=== PATIENT | female | born 1955 | race Caucasian/White ===

== ENCOUNTER 2021-08-25 12:06 | Inpatient (IN) | payer MEDICARE, OTHER ==
[2021-08-25] MEDS ORDERED: Lidocaine/Prilocaine 2.5-2.5% Crm 5 GM Tube TOP ONE (12:42)
[2021-08-25] MEDS ORDERED: Albuterol HFA 18 Gm Inhaler INH PRN (12:46)
[2021-08-25] MEDS ORDERED: Azithromycin 500 MG in Sodium Chloride 0.9% 250 ML IV SCH (13:00)
[2021-08-25] MEDS ORDERED: Non-Formulary Medication 1 Each (Denosumab [Prolia] 60 MG/ML Syringe) SQ SCH (13:00)
[2021-08-25] MEDS ORDERED: cefTRIAXone 1 GM Vial IVPUSH SCH (13:15)
[2021-08-25 13:28] LABS: ANION GAP 21.1 mmol/L (5-15); CHLORIDE,CL 100 mmol/L (98-107); SODIUM,NA 131 mmol/L (136-145)
[2021-08-25] MEDS: Sodium Chloride 0.9% 1,000 ML IV SCH (13:48)
[2021-08-25] MEDS: Gabapentin 300 MG Cap PO SCH ×2 (14:30→20:29)
[2021-08-25] MEDS ORDERED: Levofloxacin/Dextrose 5%-Water 100 ML IV ONE (14:30)
[2021-08-25] MEDS: Enoxaparin 30 MG/0.3 ML Syringe SUBCUT SCH (14:33)
--- NOTE | 2021-08-25 17:55 | HP ---
Admission history and physical to the acute care floor at [facility]. CHIEF COMPLAINT: Weakness. HISTORY OF PRESENT ILLNESS: A 65-year-old female patient presented to the [facility] earlier today for profound weakness, fatigue, and generally not feeling well. The patient's blood pressure in the clinic was in the 80s. The patient was found to be very weak. The patient states that her symptoms started a couple of weeks ago and have progressively gotten worse. She states she feels "lousy." The patient has had a productive cough. She feels short of breath. The patient endorses weakness and fatigue. She does not have any chest pain or palpitations. She has had an intermittent headache. No dizziness or lightheadedness. The patient feels she lacks energy. The patient has had chills but denies any fever. No cold symptoms. The patient did have an x-ray in the clinic, which showed right lower lobe pneumonia. Therefore, the patient was admitted to the acute care floor at [facility]. The patient also is positive for COVID-19. PAST MEDICAL HISTORY: 1. Rheumatoid arthritis. 2. Vitamin D deficiency. 3. Osteoarthritis. 4. Neuropathic pain. 5. GERD. 6. Folic acid deficiency. 7. Essential tremor. 8. Memory loss. 9. Anemia of chronic renal failure stage 3B. 10.Monocytosis. 11.Macrocytic anemia. 12.Non-celiac gluten sensitivity. 13.Hypogammaglobulinemia. 14.Central hearing loss. 15.Obstructive sleep apnea. 16.Port-A-Cath in place. 17.Essential hypertension. PAST SURGICAL HISTORY: 1. Temporomandibular joint surgery. 2. section. 3. Right total hip arthroplasty. 4. Right hand debridement. 5. Appendectomy. 6. Cervical spine surgery. 7. Lumbar spine surgery. 8. Gastrectomy secondary to perforated gastric mucosa. 9. Cataract removal, bilateral. 10.Tonsillectomy with adenoidectomy. FAMILY HISTORY: Noncontributory. SOCIAL HISTORY: The patient drinks alcohol occasionally. No illegal drug use. The patient has never been a smoker. No vaping. The patient is currently . The patient has 1 child. ALLERGIES: 1. Diagnostic x-ray. 2. Erythromycin. 3. Kineret. 4. Penicillin. 5. Sulfa. 6. Cefaclor. 7. Clindamycin. 8. Morphine. 9. Piroxicam. 10.Tetracyclines. 11.Anakinra. MEDICATIONS: 1. Prolia 60 mg subcutaneous every 6 months. 2. Albuterol HFA 1 to 2 puffs every 4 hours as needed. 3. Famotidine 20 mg 1 tablet p.o. twice daily. 4. Folic acid 1 mg twice daily. 5. Lamisil 250 mg 1 tablet p.o. daily. 6. Arava 20 mg 1/2 tablet daily. 7. Tylenol Arthritis 2 tablets every 6 hours as needed. 8. Loprox 0.77% gel apply 1 time a day. 9. Prilosec 40 mg 1 capsule once daily. 10.Cozaar 25 mg 1 tablet p.o. daily. 11.Magnesium oxide 400 mg 1 tablet p.o. twice daily. 12.Prednisone 5 mg 1 tablet p.o. daily. 13.Neurontin 300 mg capsule 2 capsules in the a.m., 2 capsules in the afternoon, and 7 capsules at bedtime. REVIEW OF SYSTEMS: See HPI. PHYSICAL EXAMINATION: Vital Signs: Height 5 feet 1 inch, weight 113 pounds. Blood pressure 64/45, pulse 76, respirations 16, temperature 98.1, and oxygen saturation 98% on room air. Skin: Intact, warm, and dry. Respiratory: Bibasilar crackles with scattered rhonchi on the right. Otherwise, decreased. Cardiovascular: Regular rate and rhythm, no murmur. Abdomen: Soft, nontender. Bowel sounds are hypoactive x4. Extremities: No edema. Neurological: The patient is alert. The patient is oriented to person, place, and time. LABORATORY STUDIES: 1. CBC: White blood cell count 5.4, hemoglobin 11.7, hematocrit 35.8, and platelets 257,000. 2. CMP: Sodium 131, potassium 4.1, chloride 100, CO2 of 14, anion gap 21.1, BUN 36, creatinine 1.8, GFR 28, glucose 144, calcium 8.2, phosphorus 4.4, magnesium 2.0, AST 27, ALT 14, and alkaline phosphatase 45. 3. LDH 283. 4. C-reactive protein 4.8. 5. Lactic acid 1.2. 6. Ferritin 698. ASSESSMENT: 1. Right lower lobe pneumonia, unknown organism. 2. COVID-19. 3. Hypotension. 4. Rheumatoid arthritis. 5. Anemia of chronic renal failure stage 3B. 6. Hypogammaglobulinemia. 7. Essential tremor. 8. Essential hypertension. 9. Gastroesophageal reflux disease. 10.Obstructive sleep apnea. PLAN: A 65-year-old female patient admitted to the acute care floor at [facility] with above diagnoses. The patient will be started on IV Levaquin per Pharmacy. We will start her on vitamin D, vitamin C, and zinc. The patient is not requiring oxygen, therefore, we will not start the remdesivir or Decadron. The patient wishes to be a code 2; however, she has agreed to a code 1 per her daughter's persistence. She does wish to transfer to a higher level of care should the need arise. We will recheck laboratory work tomorrow morning. The patient is stable at this point. We will resuscitate hypotension with IV fluid. This patient was seen and examined by me as an provider. TB: 08/25/2021 16:36:51 MODL: 08/25/2021 17:48:50 /[id number]
[2021-08-25] MEDS: Cholecalciferol (Vitamin D3) 25 MCG Tab PO SCH (20:29)
[2021-08-25] MEDS: Ascorbic Acid 500 MG Tab PO SCH (20:29)
[2021-08-25] MEDS: Zinc Sulfate 220 MG Cap PO SCH (20:29)
[2021-08-25] MEDS: Folic Acid 1 MG Tab PO SCH ×2 (20:29→20:31)
[2021-08-25] MEDS: Famotidine 20 MG Tab PO SCH (20:29)
[2021-08-25] MEDS: Acetaminophen 650 MG Tab.ER PO PRN (20:53)
[2021-08-26] MEDS: Sodium Chloride 0.9% 1,000 ML IV SCH ×2 (01:03→14:14)
[2021-08-26] MEDS: Acetaminophen 650 MG Tab.ER PO PRN ×3 (04:15→22:16)
[2021-08-26] MEDS: Omeprazole 20 MG Cap.CR PO SCH (06:23)
[2021-08-26 07:12] LABS: ANION GAP 18.6 mmol/L (5-15)
[2021-08-26] MEDS: Folic Acid 1 MG Tab PO SCH ×2 (07:29→20:10)
[2021-08-26] MEDS: TERBINAFINE 250 MG PO SCH (07:29)
[2021-08-26] MEDS: CICLOPIROX TOP SCH (07:29)
[2021-08-26] MEDS: Leflunomide 20 MG Tab PO SCH ×2 (07:30→07:51)
[2021-08-26] MEDS: Famotidine 20 MG Tab PO SCH ×2 (07:38→20:11)
[2021-08-26] MEDS: Ascorbic Acid 500 MG Tab PO SCH ×2 (07:38→20:10)
[2021-08-26] MEDS: Gabapentin 300 MG Cap PO SCH ×3 (07:38→20:10)
[2021-08-26] MEDS: Cholecalciferol (Vitamin D3) 25 MCG Tab PO SCH (07:38)
[2021-08-26] MEDS: Zinc Sulfate 220 MG Cap PO SCH (07:38)
[2021-08-26] MEDS: Magnesium Oxide 400 MG Tab PO SCH (07:51)
[2021-08-26] MEDS: Losartan 25 MG Tab PO SCH (07:52)
[2021-08-26] MEDS: Levofloxacin 250 MG Tab PO SCH (10:31)
[2021-08-26] MEDS: Enoxaparin 30 MG/0.3 ML Syringe SUBCUT SCH (14:02)
[2021-08-26] MEDS: predniSONE 5 MG Tab PO SCH (17:55)
--- NOTE | 2021-08-26 20:46 | PN ---
Progress Note for CHRIS SALCEDO Date: 08/26/2021 Room #: [facility] CHIEF COMPLAINT: Weakness. HISTORY OF PRESENT ILLNESS: Hospital day #2 for a 65-year-old female patient, who presented to the [facility] yesterday with profound weakness, fatigue, and generally not feeling well. In the clinic, the patient had blood pressures in the 80s. She did test positive for COVID-19. The patient states that she really just was feeling "lousy." The patient has a productive cough. Decision was made to admit the patient to the acute care floor for right lower lobe pneumonia. The patient is very adamant today that she wants to sign herself out AMA. Long discussion was held with the patient in regard to her current health status, the possibility of , worsening symptoms, without proper treatment. The patient continued to be adamant about going home AMA. The patient did spike a fever today to 104 and became very weak. She then decided to stay and not go home AMA today. REVIEW OF SYSTEMS: Skin: Negative. Neurological: Negative. Respiratory: Productive cough, intermittent shortness of breath. Cardiovascular: Negative. Abdomen: Negative. Extremities: Complains of joint pain, which is chronic from her rheumatoid arthritis. Constitutional: Negative. PHYSICAL EXAMINATION: Vital Signs: Temperature 98.9, pulse 82, blood pressure 102/72, respirations 16, O2 saturation 97% on room air. General: The patient is cooperative. The patient does not appear to be in any acute distress. The patient is alert. Respiratory: Coarse rhonchi with crackles, right mid lung to base. Base crackles, left lung. Cardiovascular: Regular rate and rhythm. No murmur. Abdomen: Soft, nontender. Bowel sounds are hypoactive x4. Extremities: No edema. Neurological: The patient is alert. The patient is oriented to person, place, and time. LABORATORY STUDIES: 1. CBC: White blood cell count 4.4, hemoglobin 9.3, hematocrit 28.4, platelet count 237. 2. CMP: Sodium 136, potassium 3.6, chloride 104, CO2 of 17, anion gap 18.6, BUN 29, creatinine 1.5, GFR 35, glucose 83, calcium 6.9, corrected calcium 8.3, AST 24, ALT 12, alkaline phosphatase 33, total protein 5.5. ASSESSMENT: 1. Right lower lobe pneumonia, etiology possibly bacterial. 2. COVID-19. 3. Hypotension. 4. Rheumatoid arthritis. 5. Anemia of chronic renal failure, stage 3B. 6. Hypogammaglobulinemia. 7. Essential tremor. 8. Essential hypertension. 9. Gastroesophageal reflux disease. 10.Obstructive sleep apnea. PLAN: Hospital day #2 for a 65-year-old female patient, who was admitted to [facility] acute care for right lower lobe pneumonia. The patient also has concurrent COVID-19. It is believed the pneumonia is bacterial given the chest x-ray and not related to COVID-19. The patient does not meet criteria for remdesivir or Decadron. Nursing staff called this afternoon, the patient spiked a fever to 104. UA was obtained. Blood cultures have already also been obtained. The patient will continue on her current IV antibiotics. The patient wishes to be a code 2; however, she has agreed to code 1 per her daughter's presence. We will ask Psychiatric Nursing Assistant to clarify code status. Recheck laboratory work tomorrow. Continue with IV fluid hydration. This patient was seen and examined by me as an [facility] provider. TB: 08/26/2021 17:27:19 MODL: 08/26/2021 20:38:10 /[id number]
[2021-08-27] MEDS: Sodium Chloride 0.9% 1,000 ML IV SCH ×3 (00:36→20:29)
[2021-08-27] MEDS: Omeprazole 20 MG Cap.CR PO SCH (06:25)
[2021-08-27] MEDS: Gabapentin 300 MG Cap PO SCH ×3 (09:48→19:55)
[2021-08-27] MEDS: Zinc Sulfate 220 MG Cap PO SCH (09:48)
[2021-08-27] MEDS: Losartan 25 MG Tab PO SCH (09:48)
[2021-08-27] MEDS: Leflunomide 20 MG Tab PO SCH (09:49)
[2021-08-27] MEDS: Cholecalciferol (Vitamin D3) 25 MCG Tab PO SCH (09:51)
[2021-08-27] MEDS: Acetaminophen 650 MG Tab.ER PO PRN ×3 (09:51→22:03)
[2021-08-27] MEDS: Folic Acid 1 MG Tab PO SCH ×2 (09:51→19:56)
[2021-08-27] MEDS: Famotidine 20 MG Tab PO SCH ×2 (09:52→19:56)
[2021-08-27] MEDS: Magnesium Oxide 400 MG Tab PO SCH (09:52)
[2021-08-27] MEDS: predniSONE 5 MG Tab PO SCH (09:52)
[2021-08-27] MEDS: Ascorbic Acid 500 MG Tab PO SCH ×2 (09:52→19:56)
[2021-08-27] MEDS: CICLOPIROX TOP SCH (09:54)
[2021-08-27] MEDS: TERBINAFINE 250 MG PO SCH (09:54)
[2021-08-27] MEDS: Levofloxacin 250 MG Tab PO SCH (11:41)
[2021-08-27] MEDS: Enoxaparin 30 MG/0.3 ML Syringe SUBCUT SCH (11:43)
--- NOTE | 2021-08-27 14:15 | PN ---
Progress Note for CHRIS SALCEDO Date: 08/27/2021 Room #: [facility]209 CHIEF COMPLAINT: Weakness. HISTORY OF PRESENT ILLNESS: Hospital day #3 for a 65-year-old female patient who is admitted for right lower lobe pneumonia. The patient was also found to test positive for COVID-19. The patient states that she feels very weak and tired today. She denies any headaches, dizziness, or lightheadedness. No shortness of breath. No cough. Patient denies any chest pain or palpitations. No abdominal complaints. No skin complaints. The patient continues with fevers and chills. No issues with urination or bowel movements. Yesterday, the patient had a fever as high as 104. She was very profoundly weak and was unable to get herself off the toilet. REVIEW OF SYSTEMS: See HPI. PHYSICAL EXAMINATION: Vital Signs: Temperature 101.4, blood pressure 143/72, respirations 19, and oxygen saturation 97% on room air. Skin: Intact, warm, and dry. General: The patient is cooperative. Patient does not appear to be in any acute distress. The patient is alert. Respiratory: Coarse rhonchi with crackles of right mid lung to base. Left base crackles. Cardiovascular: Regular rate and rhythm, no murmur. Abdomen: Soft, nontender. Bowel sounds hypoactive x4. Extremities: No edema. Neurological: The patient is alert. Patient is oriented to person, place, and time. LABORATORY STUDIES: 1. CBC: White blood cell count 3.8, hemoglobin 11.0, hematocrit 33.9, and platelets 214,000. 2. BMP: Sodium 137, potassium 4.0, chloride 107, CO2 of 13, anion gap 21.0, BUN 17, creatinine 1.2, GFR 45, glucose 71, and calcium 7.3. 3. Ferritin 849. 4. LDH 313. 5. C-reactive protein 9.5. 6. Procalcitonin 13.73. ASSESSMENT: 1. Right lower lobe pneumonia, etiology possibly bacterial. 2. COVID-19. 3. Hypotension. 4. Rheumatoid arthritis. 5. Anemia of chronic renal failure stage 3B. 6. Hypogammaglobulinemia. 7. Essential tremor. 8. Essential hypertension. 9. Gastroesophageal reflux disease. 10.Obstructive sleep apnea. PLAN: Hospital day #3 for a 65-year-old female patient who was admitted to the [facility] for right lower lobe pneumonia. The patient also has concurrent COVID-19. The family is concerned about the patient not getting monoclonal antibody. The patient is outside the window and also does not qualify as she is inpatient and does not require any oxygen. Remdesivir and Decadron will be considered if the patient needs or requires oxygen. UA from yesterday was negative. Awaiting blood culture results. Patient will continue on her current IV antibiotics for her pneumonia. The patient is still deciding on code status. Recheck laboratory work tomorrow. Continue with IV fluid hydration. The patient's renal status has improved, we will talk to Pharmacy about changing antibiotic dose. I do anticipate the patient to continue on acute cares for the next 2 to 3 days. Physical therapy is not warranted according to their notes. This patient was seen and examined by me as an [facility] provider. TB: 08/27/2021 13:14:03 MODL: 08/27/2021 14:08:55 /[id number]
[2021-08-28] MEDS: Acetaminophen 650 MG Tab.ER PO PRN (04:04)
[2021-08-28] MEDS: Sodium Chloride 0.9% 1,000 ML IV SCH ×2 (06:36→17:40)
[2021-08-28] MEDS: Omeprazole 20 MG Cap.CR PO SCH (06:36)
[2021-08-28 07:30] LABS: ANION GAP 18.4 mmol/L (5-15)
[2021-08-28] MEDS: predniSONE 5 MG Tab PO SCH (08:26)
[2021-08-28] MEDS: Gabapentin 300 MG Cap PO SCH ×3 (08:26→19:55)
[2021-08-28] MEDS: Losartan 25 MG Tab PO SCH (08:26)
[2021-08-28] MEDS: Famotidine 20 MG Tab PO SCH ×2 (08:26→19:55)
[2021-08-28] MEDS: Ascorbic Acid 500 MG Tab PO SCH ×2 (08:27→19:55)
[2021-08-28] MEDS: CICLOPIROX TOP SCH (08:27)
[2021-08-28] MEDS: Leflunomide 20 MG Tab PO SCH (08:27)
[2021-08-28] MEDS: Zinc Sulfate 220 MG Cap PO SCH ×2 (08:27→18:58)
[2021-08-28] MEDS: Magnesium Oxide 400 MG Tab PO SCH (08:27)
[2021-08-28] MEDS: Cholecalciferol (Vitamin D3) 25 MCG Tab PO SCH ×2 (08:27→18:57)
[2021-08-28] MEDS: TERBINAFINE 250 MG PO SCH (08:28)
[2021-08-28] MEDS: Folic Acid 1 MG Tab PO SCH ×3 (08:28→19:56)
--- NOTE | 2021-08-28 08:36 | CR ---
[id number] RAD/RAD Chest Portable EXAM: RAD Chest Portable INDICATION: PNEUMONIA. COMPARISON: None. DISCUSSION/IMPRESSION: Parenchymal opacification in the right lung base. In the clinical setting of infection this would be consistent with pneumonia. No prior imaging is available for comparison or correlation. Follow-up radiograph in 4 and 6 weeks is recommended to assess resolution of parenchymal opacification. Right chest wall port catheter place with tip in the inferior SVC. Thomas Agosto MD 08/28/21 0835 Thank you for allowing us to participate in the care of your patient.
[2021-08-28] MEDS: Acetaminophen 325 MG Tab PO PRN ×3 (08:40→19:56)
--- NOTE | 2021-08-28 10:57 | PN ---
Progress Note for CHRIS SALCEDO Date: 08/28/2021 Room #: [facility] CHIEF COMPLAINT: Weakness. HISTORY OF PRESENT ILLNESS: Hospital day #4 on a 65-year-old female patient who was admitted for a right lower lobe pneumonia. The patient continues to have low-grade fevers. The patient has not complained of any headaches, dizziness, or lightheadedness. No shortness of breath. No cough. The patient denies any chest pain or palpitations. No abdominal pain. No diarrhea. No issues with bowel movements or urination. The patient denies any chills; however, she continues to have low-grade fevers. The patient continues to have weakness. REVIEW OF SYSTEMS: Constitutional: Negative. Skin: Negative. Respiratory: Negative. Cardiovascular: Negative. Abdomen: Negative. Neurological: Negative. Skin: Negative. PHYSICAL EXAMINATION: Vital Signs: Temperature 98.9, pulse 84, blood pressure 121/67, respiratory rate 16, and oxygen saturation 96% on room air. General: The patient is alert. The patient is cooperative. The patient does not appear to be in any acute distress. Skin: Intact, warm and dry. Respiratory: Bibasilar crackles with coarse rhonchi, right mid lung to base. Cardiovascular: Regular rate and rhythm, no murmur. Abdomen: Soft, nontender. Bowel sounds are hypoactive x4. Extremities: No edema. Neurological: The patient is alert. The patient is oriented to person, place, and time. LABORATORY STUDIES: 1. CBC: White blood cell count 3.2, hemoglobin 8.5, hematocrit 26.0, and platelets are 226,000. 2. CMP: Sodium 137, potassium 3.4, chloride 107, CO2 of 15, anion gap 18.4, BUN 13, creatinine 1.1, GFR 50, glucose 78, corrected calcium 8.4, AST 40, ALT 11, alkaline phosphatase 28, and total protein 5.2. ASSESSMENT: 1. Right lower lobe pneumonia. 2. COVID-19. 3. Hypotension. 4. Rheumatoid arthritis. 5. Anemia of chronic renal failure stage 3B. 6. Hypogammaglobulinemia. 7. Essential tremor. 8. Essential hypertension. 9. Gastroesophageal reflux disease. 10.Obstructive sleep apnea. PLAN: Hospital day #4 on a 65-year-old female patient who was admitted to the acute care floor at [facility] for right lower lobe pneumonia. The patient also has concurrent COVID-19. We will discontinue current Tylenol order and change to Tylenol 650 every 4 hours as needed. Continue with IV fluids. Continue with respiratory care services. Encourage incentive spirometry. The patient does need to get out of bed and ambulate. We will continue the patient on her current dose of Levaquin 250 daily. The patient has not required any oxygen. We will continue current cares given the ongoing pneumonia, COVID-19, and fevers. The patient will remain acute given her current status. Recheck laboratory work tomorrow. We will recheck a chest x-ray today. May consider blood cultures. However, the patient has been on Levaquin. This patient was seen and examined by me as an [facility] provider. TB: 08/28/2021 07:49:10 MODL: 08/28/2021 09:28:34 /[id number]
[2021-08-28] MEDS: Levofloxacin 250 MG Tab PO SCH (11:35)
[2021-08-28] MEDS: Enoxaparin 40 MG/0.4 ML Syringe SUBCUT SCH (11:35)
[2021-08-29] MEDS: Acetaminophen 325 MG Tab PO PRN ×2 (06:18→21:39)
[2021-08-29] MEDS: Omeprazole 20 MG Cap.CR PO SCH (06:19)
[2021-08-29 07:32] LABS: ANION GAP 20.6 mmol/L (5-15)
[2021-08-29] MEDS: Leflunomide 20 MG Tab PO SCH (08:19)
[2021-08-29] MEDS: Losartan 25 MG Tab PO SCH (08:19)
[2021-08-29] MEDS: Zinc Sulfate 220 MG Cap PO SCH (08:20)
[2021-08-29] MEDS: Folic Acid 1 MG Tab PO SCH ×2 (08:20→19:26)
[2021-08-29] MEDS: Ascorbic Acid 500 MG Tab PO SCH ×2 (08:20→19:26)
[2021-08-29] MEDS: Cholecalciferol (Vitamin D3) 25 MCG Tab PO SCH (08:20)
[2021-08-29] MEDS: Famotidine 20 MG Tab PO SCH ×2 (08:20→19:27)
[2021-08-29] MEDS: Magnesium Oxide 400 MG Tab PO SCH (08:20)
[2021-08-29] MEDS: predniSONE 5 MG Tab PO SCH (08:20)
[2021-08-29] MEDS: Gabapentin 300 MG Cap PO SCH ×3 (08:21→19:25)
[2021-08-29] MEDS: CICLOPIROX TOP SCH (08:41)
[2021-08-29] MEDS: TERBINAFINE 250 MG PO SCH (08:41)
--- NOTE | 2021-08-29 09:15 | PCM.SN.2 ---
- Free Text/Narrative Note: 08/28/[address] Toy Spears, [facility] infectious disease. Recommend starting Vanco for 48 hours in addition to Levaquin. Continue with Tylenol for fevers. Continue IVF. Repeat urine and blood cultures. Recheck labs in AM. Time Documentation
--- NOTE | 2021-08-29 09:22 | PCM.SN.2 ---
- Free Text/Narrative Note: Spoke with Dr. Beltran, Hospitalist [facility]. Recommend to stop Levaquin and start 2 grams Rocephin and then 1 gram every 24 hours. Continue Vanco. Monitor labs. Dr. Beltran feels Levaquin only has a 70% efficacy for pneumonias. Continue to treat fevers with Tylenol. Time Documentation
[2021-08-29] MEDS: Sodium Chloride 0.9% 1,000 ML IV SCH ×2 (09:41→19:24)
--- NOTE | 2021-08-29 09:53 | PCM.SN.2 ---
- Free Text/Narrative Note: Spoke with Dr. Beltran regarding allergies to Rocephin. Will change to Meropenem 1 gram every 12 hours (renal dose). Aware patient has a Penicillin allergy, however research shows a cross sensitivity of <1%. Continue with Vanco. Treat fevers with Tylenol. Lab tomorrow. Time Documentation
[2021-08-29] MEDS: Meropenem 1 GM SDV IVPUSH SCH ×2 (10:24→21:31)
[2021-08-29] MEDS: Enoxaparin 40 MG/0.4 ML Syringe SUBCUT SCH (11:57)
[2021-08-30] MEDS: Sodium Chloride 0.9% 1,000 ML IV SCH (04:43)
[2021-08-30] MEDS: Omeprazole 20 MG Cap.CR PO SCH (06:17)
[2021-08-30 08:17] LABS: ANION GAP 19.2 mmol/L (5-15)
[2021-08-30] MEDS: predniSONE 5 MG Tab PO SCH (08:28)
[2021-08-30] MEDS: Leflunomide 20 MG Tab PO SCH (08:28)
[2021-08-30] MEDS: Famotidine 20 MG Tab PO SCH (08:29)
[2021-08-30] MEDS: Folic Acid 1 MG Tab PO SCH (08:29)
[2021-08-30] MEDS: Losartan 25 MG Tab PO SCH (08:29)
[2021-08-30] MEDS: Gabapentin 300 MG Cap PO SCH ×2 (08:29→13:40)
[2021-08-30] MEDS: Ascorbic Acid 500 MG Tab PO SCH (08:29)
[2021-08-30] MEDS: Zinc Sulfate 220 MG Cap PO SCH (08:29)
[2021-08-30] MEDS: Cholecalciferol (Vitamin D3) 25 MCG Tab PO SCH (08:29)
[2021-08-30] MEDS: Magnesium Oxide 400 MG Tab PO SCH (08:31)
[2021-08-30] MEDS: Acetaminophen 325 MG Tab PO PRN ×2 (09:37→13:40)
[2021-08-30] MEDS: Meropenem 1 GM SDV IVPUSH SCH (09:37)
[2021-08-30] MEDS ORDERED: Meperidine PF 25 MG/ML SDV IVPUSH ONE (10:04)
[2021-08-30] MEDS ORDERED: Magnesium Sulfate/Water 4 GM in Premix Bag 1 BAG IV ONE (10:43)
[2021-08-30] MEDS ORDERED: Enoxaparin 40 MG/0.4 ML Syringe SUBCUT SCH (11:00)
--- NOTE | 2021-08-30 11:21 | PN ---
Progress Note for CHRIS SALCEDO Date: 08/29/2021 Room #: [facility] CHIEF COMPLAINT: Weakness. HISTORY OF PRESENT ILLNESS: Hospital day #5 on a 65-year-old female patient who was admitted last Tuesday to the acute care floor at [facility] for right lower lobe pneumonia. The patient continues to have low-grade fevers despite the use of Tylenol. The patient has not complained of any headaches, dizziness, or lightheadedness. The patient denies any chest pain or palpitations. No shortness of breath. She has developed a dry cough. The patient is not requiring any oxygen. No abdominal complaints. No skin complaints. The patient has had intermittent chills. The patient's weakness has seemed to be improving. REVIEW OF SYSTEMS: See HPI. PHYSICAL EXAMINATION: Vital Signs: Temperature 103.2, blood pressure 156/90, respiratory rate 18, oxygen saturation 93% on room air. Skin: Warm and dry, intact. General: The patient is alert. The patient is cooperative. The patient does not appear to be in any acute distress. Respiratory: Bibasilar crackles with coarse rhonchi of the right [id number] lung. Otherwise, decreased. Cardiovascular: Regular rate and rhythm, no murmur. Abdomen: Soft, nontender. Bowel sounds are hypoactive x4. Extremities: No edema. Neurologic: The patient is alert. The patient is oriented to person, place, and time. LABORATORY STUDIES: 1. CBC: White blood cell count 4.0, hemoglobin 10.5, hematocrit 30.6, platelets 272,000. 2. CMP: Sodium 137, potassium 3.6, chloride 104, CO2 of 16, anion gap 20.6, BUN 10, creatinine 1.3, GFR 41, glucose 88, calcium 7.6, AST 63, ALT 16, alkaline phosphatase 33, total protein 6.6. 3. Ferritin 1727. 4. C-reactive protein 15.5. 5. LDH 464. ASSESSMENT: 1. Right lower lobe pneumonia, likely bacterial. 2. Coronavirus disease 2019. 3. Hypotension-resolved. 4. Rheumatoid arthritis. 5. Anemia of chronic renal failure, stage IIIB. 6. Hypogammaglobulinemia. 7. Essential tremor. 8. Essential hypertension. 9. Gastroesophageal reflux disease. 10.Obstructive sleep apnea. PLAN: Hospital day #5 on a 65-year-old female patient who was admitted to the acute care floor at [facility] for the above diagnoses. The patient was started on vancomycin yesterday per Infectious Disease recommendation. I did speak with Dr. Spears, Infectious Disease, [facility], recommends current treatment. We will discontinue levofloxacin and start the patient on meropenem 1 g every 12 hours. Cross sensitivity with penicillin allergy less than 1%. Continue with IV fluids. Continue with incentive spirometer and cough and deep breathing. The patient continues to remain off oxygen. Continue acute cares now given fevers, slow progression to heal, and IV antibiotics. The patient's appetite has been poor. Encourage protein supplements as much as possible. I did speak with [facility] as well as [facility], neither hospital has any available beds at this time. We will repeat blood cultures again today. Recheck laboratory work tomorrow morning. This patient was seen and examined by me as an [facility] provider. TB: 08/29/2021 11:11:52 MODL: 08/29/2021 12:41:20 /[id number]
[2021-08-30] MEDS: TERBINAFINE 250 MG PO SCH (13:41)
[2021-08-30] MEDS: CICLOPIROX TOP SCH (13:42)
--- NOTE | 2021-08-30 13:45 | DISCH ---
Discharge summary from the acute care floor at [facility]. Discharged to [facility]. ADMITTING DIAGNOSES: 1. Right lower lobe pneumonia. 2. Persistent fevers. 3. Hypotension. 4. COVID-19. 5. Rheumatoid arthritis. 6. Anemia of chronic renal failure stage 3B. 7. Hypogammaglobulinemia. 8. Essential tremor. 9. Essential hypertension. 10.Gastroesophageal reflux disease. 11.Obstructive sleep apnea. DISCHARGE DIAGNOSES: 1. Right lower lobe pneumonia, likely bacterial. 2. COVID-19. 3. Hypotension - resolved. 4. Persistent fevers. 5. Rheumatoid arthritis. 6. Anemia of chronic renal failure stage 3B. 7. Hypogammaglobulinemia. 8. Essential tremor. 9. Essential hypertension. 10.Gastroesophageal reflux disease. 11.Obstructive sleep apnea. HISTORY OF PRESENT ILLNESS: A 65-year-old female patient presented to the [facility] on 08/25/2021 for profound weakness, fatigue, and generally not feeling well. The patient's blood pressure in the clinic was in the 80s. The patient was found to be very weak. The patient states that her symptoms started around 08/16/2021 and have progressively gotten worse. The patient states that she feels "lousy." The patient has had a productive cough. She feels short of breath. The patient endorses weakness and fatigue. She has not had any chest pain or palpitations. The patient has had an intermittent headache. No dizziness or lightheadedness. The patient feels she lacks energy. The patient has had chills but denies any fever. No cold symptoms. The patient did have an x-ray in clinic, which showed right lower lobe pneumonia. Therefore, the patient was admitted to the acute care floor at [facility] on 08/25/2021. The patient was also found to be COVID-19 positive. BRIEF HOSPITAL COURSE: The patient was admitted acutely to [facility]. The patient was initially started on Levaquin 250 mg daily due to renal function. The patient continued to have persistent fevers ranging anywhere from 100 to 105.1. The patient was given Tylenol around the clock. The patient progressively got worse. She has not taken any p.o. medications in the last 3 days. Her fevers have been persistent despite the Tylenol. The Levaquin was stopped and changed to meropenem. Vancomycin was added on 08/28/2021. The patient's urine and blood cultures have been negative. She continues to have elevated CRP, ferritin, LDH, and procalcitonin. Today, the patient is much more confused, incontinent, and chills and fevers. The patient has been on normal saline at 100 mL an hour since admission. The patient's urine output has been just adequate. CONSULTATIONS: Physical therapy, occupational therapy, and case management. DIET: As tolerated. ACTIVITY: As tolerated. REVIEW OF SYSTEMS: Unable to obtain due to patient acuity. DISCHARGE PHYSICAL EXAMINATION: Vital Signs: Temperature 105.2, pulse 119, blood pressure 126/84, respiratory rate 24, and oxygen saturation 94% on room air. Skin: Intact, warm and dry. Respiratory: Coarse rhonchi, right mid lung to base; bibasilar crackles; otherwise decreased throughout. Cardiovascular: Tachycardic, regular rhythm, no murmur. Abdomen: Soft, nontender. Bowel sounds are hypoactive x4. Patient is incontinent of stool. Extremities: No edema. Neurological: The patient is confused. The patient is restless with chills. The patient appears to be in mild distress. DISCHARGE LABORATORY WORK: 1. CBC: White blood cell count 3.5, hemoglobin 9.2, hematocrit 26.7, and platelet count 233,000. 2. CMP: Sodium 138, potassium 3.2, chloride 107, CO2 of 15, anion gap 19.2, BUN 10, creatinine 1.3, GFR 41, glucose 106, calcium 6.9, phosphorus 1.3, and magnesium 1.5. 3. Ferritin 2020. 4. LDH 538. 5. CRP 15.2. 6. Procalcitonin 6.96. DISCHARGE MEDICATIONS: 1. Acetaminophen 650 mg p.o. every 4 hours as needed. 2. Albuterol HFA 2 puffs every 4 hours as needed. 3. Ascorbic acid 500 mg 1 tablet p.o. twice daily. 4. Vitamin D 2500 units p.o. daily. 5. Ciclopirox 1 application topically daily. 6. Lovenox 40 mg subcu daily. 7. Pepcid 20 mg p.o. twice daily. 8. Folic acid 1 mg p.o. twice daily. 9. Gabapentin 2100 mg p.o. at bedtime. 10.Gabapentin 600 mg p.o. twice daily. 11.Arava 10 mg p.o. daily. 12.Cozaar 25 mg p.o. daily. 13.Magnesium oxide 400 mg p.o. daily. 14.Meropenem 1 g IV every 12 hours. 15.Omeprazole 40 mg 1 tablet p.o. daily. 16.Prednisone 5 mg 1 tablet p.o. daily. 17.Terbinafine p.o. daily. 18.Vancomycin 750 mg IV every 24 hours. 19.Zinc sulfate 220 mg 1 tablet p.o. daily. ASSESSMENT: 1. Right lower lobe pneumonia, likely bacterial. 2. COVID-19. 3. Hypotension - resolved. 4. Persistent fevers. 5. Rheumatoid arthritis. 6. Anemia of chronic renal failure stage 3B. 7. Hypogammaglobulinemia. 8. Essential tremor. 9. Essential hypertension. 10.Gastroesophageal reflux disease. 11.Obstructive sleep apnea. PLAN: The case was discussed with Dr. Beltran, hospitalist, at [facility] in [place]. Decision was made to transfer patient to higher level of care for specialty medicine and possible LP. The patient was signed out to Dr. Beltran who accepted the patient in transfer. The patient should be transferred today, if not tomorrow. We will continue current cares until patient is transferred. The patient wishes to be a code 1. The patient will be transferred via ALS ground. This patient was seen and examined by me as an [facility] provider. TB: 08/30/2021 12:42:06 MODL: 08/30/2021 13:38:00 /[id number]
== END 2021-08-30 15:30 | disposition short-term general hospital (02) | DRG 871 ==
LOC: VM.MS 12:06
PROVIDERS: ADMIT Nurse Practitioner Family; ATTEND Nurse Practitioner Family
PROC: XW033N5 Introduction of Meropenem-vaborbactam Anti-infective into Peripheral Vein, Percutaneous Approach, New Technology Group 5 (ICD-10-PCS; principal; 2021-08-29)
DX: A41.89 Other specified sepsis (principal); J15.9 Unspecified bacterial pneumonia; U07.1 COVID-19; I95.9 Hypotension, unspecified; N18.32 Chronic kidney disease, stage 3b; D63.1 Anemia in chronic kidney disease; K21.9 Gastro-esophageal reflux disease without esophagitis; G47.33 Obstructive sleep apnea (adult) (pediatric); E55.9 Vitamin D deficiency, unspecified; M06.9 Rheumatoid arthritis, unspecified; M19.90 Unspecified osteoarthritis, unspecified site; Z90.49 Acquired absence of other specified parts of digestive tract; Z98.890 Other specified postprocedural states; Z88.0 Allergy status to penicillin; Z88.2 Allergy status to sulfonamides; Z88.1 Allergy status to other antibiotic agents; Z88.5 Allergy status to narcotic agent; Z79.52 Long term (current) use of systemic steroids; Z79.899 Other long term (current) drug therapy; Z79.51 Long term (current) use of inhaled steroids
CPT/HCPCS: 36415; 71045; 80048; 80053; 81001; 82330; 82728; 83605; 83615; 83735; 84100; 84145; 85025; 86140; 87040; 87086; 97162-GP; 97165-GO; A9270-GY; J1642; J1650; J1956; J2175; J2185; J3370; J3475; J7030; J7050; J7512